=== PATIENT | male | born 1995 | race Two or more races ===

== ENCOUNTER 2019-02-20 15:09 | Emergency (ER) | payer MEDICAID ==
--- NOTE | 2019-02-20 17:49 | ED Physician Documentation ---
PD HPI SKIN - Stated complaint Stated Complaint: RT EAR PX - Chief complaint Chief Complaint: Wound - History obtained from History obtained from: Patient, Family - History of Present Illness Timing - onset: How many days ago (noted some swelling behind right earlobe that got tender and then family noted that it drained yellow/white with red tinge material. Just a small amount and the swelling went down, but is starting to accumulate/swell again.) Timing - duration: Days (few) Timing - details: Gradual onset Location: Other (right postauricular area.) Quality / character: Painful, Swelling, Draining (small amount 2 days ago, none now.). No: Itchy Associated symptoms: Facial swelling. No: Fever, Headache, N/V/D Contributing factors: Unknown (he is visiting family here for now, unknown return time. Lives in [place]?) Similar symptoms before: Diagnosis (had skin abscess in thigh in the past, no recent other problems.) Recently seen: Not recently seen Review of Systems Constitutional: denies: Fever, Chills Ears: denies: Ear pain, Drainage/discharge Nose: denies: Rhinorrhea / runny nose, Congestion Throat: denies: Sore throat Respiratory: denies: Cough GI: denies: Abdominal Pain, Nausea, Vomiting, Diarrhea Neurologic: reports: Other (spina bifida, in wheelchair chronically. has had prior GRAIN PROCESSOR shunts for hydrocephalus.) PD PAST MEDICAL HISTORY - Present Medications Home Medications: Ambulatory Orders Medication Instructions Recorded Confirmed Chlorhexidine Gluconate [Hibiclens] 15 ml TP DAILY #236 ml 02/20/19 Sulfamethox/Trimeth 800/160 1 each PO BID #14 tablet 02/20/19 [Bactrim Ds 800/160] - Allergies Allergies/Adverse Reactions: Allergies Allergy/AdvReac Type Severity Reaction Status Date / Time Latex, Natural Rubber Allergy Rash Verified 02/20/19 15:33 PD ED PE NORMAL - Vitals Vital signs reviewed: Yes - General General: Alert and oriented X 3, No acute distress, Well developed/nourished, Other (in wheelchair. ) - HEENT HEENT: Ears normal, Moist mucous membranes, Pharynx benign - Neck Neck: Supple, no meningeal sign, No adenopathy, Other (right postauricular/back of ear in crease, with local area of some tenderness, mild redness, but no drainage nor fluctuance. His sister shows photo of the drainage material 2 days ago and it does look purulent. Noted is right parietal/occipital area shunt reservoir and then tubing, that is posterior to the area of the ear lump. No feeling of swelling nor tenderness along line of hte GRAIN PROCESSOR shunt tubing. ) - Cardiac Cardiac: RRR, No murmur - Respiratory Respiratory: Clear bilaterally - Derm Derm: Normal color, Warm and dry - Neuro Neuro: Alert and oriented X 3, Normal speech Results - Vitals Vitals: Vital Signs - 24 hr 02/20/19 02/20/19 15:26 18:13 Temperature 98.3 C H 36.6 C Heart Rate 111 H 103 H Respiratory 18 17 Rate Blood Pressure 155/100 H 138/101 H O2 Saturation 92 96 Oxygen O2 Source Room air PD MEDICAL DECISION MAKING - ED course Complexity details: considered differential (local skin infection/abscess that did drain and is now with some swelling starting again. But no fluctuance felt. It is not in area of his shunt tubing. ), d/w patient Departure - Departure Disposition: 01 Home, Self Care Clinical Impression: Abscess of postauricular region Condition: Stable Record reviewed to determine appropriate education?: Yes Instructions: ED Staph Infec Abx Tx Only Prescriptions: Chlorhexidine Gluconate [Hibiclens] 15 ml TP DAILY #236 ml Sulfamethox/Trimeth 800/160 [Bactrim Ds 800/160] 1 each PO BID #14 tablet Comments: The infection does not feel large enough to need to molly open. We will treat it with oral antibiotics twice daily for a week. Also use the chlorhexidine antiseptic wash when cleansing or showering definitely through the head and neck area and you can use it on the whole upper body to reduce amount of germs on the surface. Do this daily for the next week or so. Tylenol ibuprofen if needed for pains. Recheck if not fully improved over the next few days return sooner if worsening or other areas develop. The area of infection where it is does not look close enough to your shunt to be concerned about infection of it. We would be concerned if any sores develop overlying the shunt area or closer to it. Discharge Date/Time: 02/20/19 18:19
[2019-02-20] MEDS ORDERED: SULFAMETH/TRIMETH DS 800/160 MG TABLET PO STA (18:04)
[2019-02-20 18:14] VITALS: BP 138/101
== END 2019-02-20 18:19 | disposition home or self-care (01) ==
LOC: ED 15:09
DX: H60.01 Abscess of right external ear (principal)
CPT/HCPCS: 99282; 99284; A9270

== ENCOUNTER 2019-02-23 20:28 | Emergency (ER) | payer MEDICAID ==
--- NOTE | 2019-02-23 20:38 | ED Physician Documentation ---
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 Nausea, no vomiting. Pain has improved while awaiting evaluation Review of Systems Constitutional: denies: Fever, Chills, Sweats Cardiac: reports: Reviewed and negative Respiratory: reports: Reviewed and negative GI: reports: Abdominal Pain, Nausea. denies: Abdominal Swelling, Vomiting, Constipation, Diarrhea : denies: Dysuria, Frequency Neurologic: reports: Focal weakness (chronic (spina bifida, wheelchair-bound)). denies: Headache PD PAST MEDICAL HISTORY - Past Medical History Past Medical History: Yes Musculoskeletal: Paraplegia - Past Surgical History Ortho: Spine surgery Neuro: LINING VAMPER shunt - Present Medications Home Medications: Ambulatory Orders Medication Instructions Recorded Confirmed Chlorhexidine Gluconate [Hibiclens] 15 ml TP DAILY #236 ml 02/20/19 Sulfamethox/Trimeth 800/160 1 each PO BID #14 tablet 02/20/19 [Bactrim Ds 800/160] Cefdinir 300 mg PO BID #20 capsule 02/23/19 - Allergies Allergies/Adverse Reactions: Allergies Allergy/AdvReac Type Severity Reaction Status Date / Time Latex, Natural Rubber Allergy Rash Verified 02/23/19 20:33 PD ED PE NORMAL - Vitals Vital signs reviewed: Yes - General General: Alert and oriented X 3, No acute distress, Well developed/nourished - HEENT HEENT: Moist mucous membranes - Neck Neck: Supple, no meningeal sign - Cardiac Cardiac: No murmur - Respiratory Respiratory: No respiratory distress, Clear bilaterally - Abdomen Abdomen: Normal bowel sounds, Soft, Non tender, Non distended - Derm Derm: Normal color, Warm and dry PD ED PE EXPANDED - Cardiac Cardiac: Tachy, Regular Rhythm Results - Vitals Vitals: Vital Signs - 24 hr 02/23/19 02/23/19 02/23/19 20:34 22:32 23:40 Temperature 37.1 C 37.7 C H 2.9 C L Heart Rate 117 H 108 H 102 H Respiratory 16 18 16 Rate Blood Pressure 178/89 H 141/101 H 149/100 H O2 Saturation 92 94 95 Oxygen O2 Source Room air - Labs Labs: Laboratory Tests 02/23/19 21:12 Urine Color YELLOW Urine Clarity HAZY Urine pH 8.0 H Ur Specific [place] 1.010 Urine Protein NEGATIVE Urine Glucose (UA) 250 H Urine Ketones NEGATIVE Urine Occult Blood TRACE-INTA Urine Nitrite POSITIVE H Urine Bilirubin NEGATIVE Urine Urobilinogen 0.2 (NORMAL) Ur Leukocyte Esterase LARGE H Urine RBC 6-10 H Urine WBC 11-25 H Ur Squamous Epith Cells FEW Squamous Urine Bacteria Many H Ur Microscopic Review INDICATED Urine Culture Comments INDICATED - Rads (name of study) RUQ US Radiology: Prelim report reviewed, See rad report PD MEDICAL DECISION MAKING - ED course Complexity details: reviewed old records, reviewed results, re-evaluated patient, considered differential, d/w patient, d/w family Departure - Departure Disposition: 01 Home, Self Care Clinical Impression: Urinary tract infection Condition: Good Instructions: ED UTI Cystitis Male Prescriptions: Cefdinir 300 mg PO BID #20 capsule Comments: Discontinue the bactrim (the antibiotic prescribed on your last emergency room visit) and start the cefdinir (prescribed today) in the morning (02/24/19) Discharge Date/Time: 02/23/19 22:44
[2019-02-23 21:20] LABS: BILIRUBIN,URINE NEGATIVE (NEGATIVE); GLUCOSE, URINE (UA) 250 mg/dL (NEGATIVE); KETONES,URINE (UA) NEGATIVE (NEGATIVE); LEUKOCYTE ESTERASE, URINE LARGE (NEGATIVE); NITRITE,URINE POSITIVE (NEGATIVE); OCCULT BLOOD,URINE TRACE-INTA (NEGATIVE); PROTEIN,URINE NEGATIVE (NEGATIVE); UROBILINOGEN,URINE 0.2 (NORMAL) E.U./dL (NORMAL)
[2019-02-23 21:22] LABS: CLARITY,URINE HAZY (CLEAR)
[2019-02-23 21:33] LABS: BACTERIA,URINE Many /HPF (None Seen); SQUAMOUS EPITHELIAL CELL,UR FEW Squamous (<= Few)
--- NOTE | 2019-02-23 22:31 | Ultrasound Report ---
Reason: RUQ pain Procedure Date: 02/23/2019 Accession Number: [id number] / [id number] Procedure: US - Abdomen Limited CPT Code: Final Report FULL RESULT: EXAM: ABDOMEN ULTRASOUND LIMITED, RUQ EXAM DATE: 02/23/2019 09:46 PM. CLINICAL HISTORY: RUQ pain. COMPARISON: None. TECHNIQUE: Real-time scanning was performed with static images obtained. FINDINGS: Liver: Normal in size and echotexture. 70 cm. Main portal vein flow: Patent. Gallbladder: Normal. No stones, wall thickening, or sonographic Coy's sign. Biliary System: CBD measures 3 mm. No intrahepatic or extrahepatic ductal dilatation identified. Other: The visualized pancreas and right kidney are unremarkable. No free fluid. IMPRESSION: No cholelithiasis or cholecystitis identified. RADIA
[2019-02-23] MEDS ORDERED: cefTRIAXone 1 GM VIAL IM STA (22:45)
[2019-02-23] MEDS ORDERED: LIDOCAINE 1% 2 ML VIAL MC ONE (22:45)
[2019-02-24 00:17] VITALS: BP 149/100
== END 2019-02-23 22:44 | disposition home or self-care (01) ==
LOC: ED 20:28
DX: N39.0 Urinary tract infection, site not specified (principal); Q05.9 Spina bifida, unspecified; G82.20 Paraplegia, unspecified
CPT/HCPCS: 76705; 80053; 81001; 81003; 83690; 85025; 87077; 87086; 87181; 96372; 99284

== ENCOUNTER 2020-08-05 13:58 | Observation (INO) | payer MEDICAID ==
--- NOTE | 2020-08-05 14:20 | ED Physician Documentation ---
PD HPI ABD PAIN - Stated complaint Stated Complaint: ABD PX,VOMITING - Chief complaint Chief Complaint: Abd Pain - History obtained from History obtained from: Patient - Additional information Additional information: 24-year-old gentleman with history of spina bifida. He is wheelchair-bound and self caths due to neurogenic bladder. He gets intermittent abdominal pain and presents with an exacerbation of same. States he usually does not come to the hospital for this but despite saying its not worse than normal decided to come to the hospital today. Happens about every week. It is associated with constipation. Last bowel movement was yesterday and small. Today he vomited. He denies fevers or chills. He has a history of extensive spinal surgery related to spina bifida and states when he was a baby he had some sort of abdominal surgery which corresponds to a right upper quadrant scar but he does not know the details of that. No associated fevers or urinary complaints. Review of Systems Ten Systems: 10 systems reviewed and negative Constitutional: reports: Reviewed and negative Ears: reports: Reviewed and negative Nose: reports: Reviewed and negative Throat: reports: Reviewed and negative Cardiac: reports: Reviewed and negative PD PAST MEDICAL HISTORY - Past Medical History : Kidney stones Musculoskeletal: Paraplegia - Past Surgical History Past Surgical History: Yes Ortho: Spine surgery Neuro: BRIMMER BLOCKER shunt - Allergies Allergies/Adverse Reactions: Allergies Allergy/AdvReac Type Severity Reaction Status Date / Time Latex, Natural Rubber Allergy Rash Verified 08/05/20 14:06 - Social History Does the pt smoke?: No Smoking Status: Never smoker Does the pt drink ETOH?: No Does the pt have substance abuse?: No - Immunizations Immunizations are current?: Yes PD ED PE NORMAL - Vitals Vital signs reviewed: Yes - General General: Alert and oriented X 3, No acute distress - HEENT HEENT: PERRL, EOMI - Neck Neck: Supple, no meningeal sign, No bony TTP - Cardiac Cardiac: RRR, No murmur - Respiratory Respiratory: No respiratory distress, Clear bilaterally - Abdomen Abdomen: Other (Right upper quadrant scar, palpable umbilical hernia which is easily reducible and nontender. Mild diffuse tenderness without surgical signs.) - Neuro Neuro: Alert and oriented X 3, Normal speech Results - Vitals Vitals: Vital Signs - 24 hr 08/05/20 08/05/20 08/05/20 14:01 14:25 15:00 Temperature 36.8 C Heart Rate 54 L 149 H 146 H Respiratory 17 27 H 25 H Rate Blood Pressure 143/99 H 146/91 H 135/74 H O2 Saturation 94 92 94 08/05/20 17:47 Temperature Heart Rate 133 H Respiratory 18 Rate Blood Pressure 158/95 H O2 Saturation 92 Oxygen O2 Source Room air - EKG (time done) 1436 Rate: Rate (enter#) (148) Rhythm: Sinus tachycardia [place]: RAD Intervals: Normal RI QRS: Normal Ischemia: Non specific changes. No: ST elevation c/w ischemia, ST depression - Labs Labs: Laboratory Tests 08/05/20 08/05/20 08/05/20 14:40 14:40 14:40 WBC 19.3 H RBC 6.28 H Hgb 18.6 H Hct 57.1 H MCV 90.9 MCH 29.6 MCHC 32.6 RDW 13.7 Plt Count 360 MPV 9.0 Neut # (Auto) 17.0 H Lymph # (Auto) 0.8 L [place] # (Auto) 1.4 H Eos # (Auto) 0.0 Baso # (Auto) 0.1 Absolute Nucleated RBC 0.00 Nucleated RBC % 0.0 Sodium 141 Potassium 3.6 Chloride 97 L Carbon Dioxide 31 Anion Gap 13.0 BUN 23 H Creatinine 0.8 Estimated GFR (MDRD) 119 Glucose 142 H Lactic Acid 1.1 Calcium 9.5 Magnesium 2.5 Total Bilirubin 1.2 H AST 22 ALT 51 Alkaline Phosphatase 105 Troponin I High Sens B-Natriuretic Peptide Total Protein 8.4 H Albumin 4.8 Globulin 3.6 Albumin/Globulin Ratio 1.3 Lipase 24 TSH Urine Color Urine Clarity Urine pH Ur Specific [place] Urine Protein Urine Glucose (UA) Urine Ketones Urine Occult Blood Urine Nitrite Urine Bilirubin Urine Urobilinogen Ur Leukocyte Esterase Urine RBC Urine WBC Ur Epithelial Cells Ur Squamous Epith Cells Amorphous Sediment Urine Bacteria Ur Microscopic Review Urine Culture Comments Nasal Adenovirus (PCR) Nasal B. parapertussis DNA (PCR) Nasal Coronavir 229E PCR Nasal Coronavir HKU1 PCR Nasal Coronavir NL63 PCR Nasal Coronavir OC43 PCR Nasal Enterovir/Rhinovir PCR Nasal Influenza B PCR Nasal Influenza A PCR Nasal Parainfluen 1 PCR Nasal Parainfluen 2 PCR Nasal Parainfluen 3 PCR Nasal Parainfluen 4 PCR Nasal RSV (PCR) Nasal B.pertussis DNA PCR Nasal C.pneumoniae (PCR) Kam Human Metapneumo PCR Nasal M.pneumoniae (PCR) Nasal SARS-CoV-2 (PCR) Urine Opiates Screen Ur Oxycodone Screen Urine Methadone Screen Ur Propoxyphene Screen Ur Barbiturates Screen Ur Tricyclics Screen Ur Phencyclidine Scrn Ur Amphetamine Screen U Methamphetamines Scrn U Benzodiazepines Scrn Urine Cocaine Screen U Cannabinoids Screen 08/05/20 08/05/20 08/05/20 14:40 14:40 14:40 WBC RBC Hgb Hct MCV MCH MCHC RDW Plt Count MPV Neut # (Auto) Lymph # (Auto) [place] # (Auto) Eos # (Auto) Baso # (Auto) Absolute Nucleated RBC Nucleated RBC % Sodium Potassium Chloride Carbon Dioxide Anion Gap BUN Creatinine Estimated GFR (MDRD) Glucose Lactic Acid Calcium Magnesium Total Bilirubin AST ALT Alkaline Phosphatase Troponin I High Sens 3.1 B-Natriuretic Peptide 12 Total Protein Albumin Globulin Albumin/Globulin Ratio Lipase TSH 1.03 Urine Color Urine Clarity Urine pH Ur Specific [place] Urine Protein Urine Glucose (UA) Urine Ketones Urine Occult Blood Urine Nitrite Urine Bilirubin Urine Urobilinogen Ur Leukocyte Esterase Urine RBC Urine WBC Ur Epithelial Cells Ur Squamous Epith Cells Amorphous Sediment Urine Bacteria Ur Microscopic Review Urine Culture Comments Nasal Adenovirus (PCR) Nasal B. parapertussis DNA (PCR) Nasal Coronavir 229E PCR Nasal Coronavir HKU1 PCR Nasal Coronavir NL63 PCR Nasal Coronavir OC43 PCR Nasal Enterovir/Rhinovir PCR Nasal Influenza B PCR Nasal Influenza A PCR Nasal Parainfluen 1 PCR Nasal Parainfluen 2 PCR Nasal Parainfluen 3 PCR Nasal Parainfluen 4 PCR Nasal RSV (PCR) Nasal B.pertussis DNA PCR Nasal C.pneumoniae (PCR) Kam Human Metapneumo PCR Nasal M.pneumoniae (PCR) Nasal SARS-CoV-2 (PCR) Urine Opiates Screen Ur Oxycodone Screen Urine Methadone Screen Ur Propoxyphene Screen Ur Barbiturates Screen Ur Tricyclics Screen Ur Phencyclidine Scrn Ur Amphetamine Screen U Methamphetamines Scrn U Benzodiazepines Scrn Urine Cocaine Screen U Cannabinoids Screen 08/05/20 08/05/20 15:35 15:50 WBC RBC Hgb Hct MCV MCH MCHC RDW Plt Count MPV Neut # (Auto) Lymph # (Auto) [place] # (Auto) Eos # (Auto) Baso # (Auto) Absolute Nucleated RBC Nucleated RBC % Sodium Potassium Chloride Carbon Dioxide Anion Gap BUN Creatinine Estimated GFR (MDRD) Glucose Lactic Acid Calcium Magnesium Total Bilirubin AST ALT Alkaline Phosphatase Troponin I High Sens B-Natriuretic Peptide Total Protein Albumin Globulin Albumin/Globulin Ratio Lipase TSH Urine Color YELLOW Urine Clarity CLOUDY Urine pH 7.5 Ur Specific [place] 1.020 Urine Protein 100 H Urine Glucose (UA) NEGATIVE Urine Ketones TRACE Urine Occult Blood LARGE H Urine Nitrite POSITIVE H Urine Bilirubin NEGATIVE Urine Urobilinogen 1 (NORMAL) Ur Leukocyte Esterase MODERATE H Urine RBC 11-25 H Urine WBC 11-25 H Ur Epithelial Cells MOD Transitional H Ur Squamous Epith Cells RARE Squamous Amorphous Sediment Few Urine Bacteria Many H Ur Microscopic Review INDICATED Urine Culture Comments INDICATED Nasal Adenovirus (PCR) NOT DETECTED Nasal B. parapertussis DNA (PCR) NOT DETECTED Nasal Coronavir 229E PCR NOT DETECTED Nasal Coronavir HKU1 PCR NOT DETECTED Nasal Coronavir NL63 PCR NOT DETECTED Nasal Coronavir OC43 PCR NOT DETECTED Nasal Enterovir/Rhinovir PCR NOT DETECTED Nasal Influenza B PCR NOT DETECTED Nasal Influenza A PCR NOT DETECTED Nasal Parainfluen 1 PCR NOT DETECTED Nasal Parainfluen 2 PCR NOT DETECTED Nasal Parainfluen 3 PCR NOT DETECTED Nasal Parainfluen 4 PCR NOT DETECTED Nasal RSV (PCR) NOT DETECTED Nasal B.pertussis DNA PCR NOT DETECTED Nasal C.pneumoniae (PCR) NOT DETECTED Kam Human Metapneumo PCR NOT DETECTED Nasal M.pneumoniae (PCR) NOT DETECTED Nasal SARS-CoV-2 (PCR) NOT DETECTED Urine Opiates Screen NEGATIVE Ur Oxycodone Screen NEGATIVE Urine Methadone Screen NEGATIVE Ur Propoxyphene Screen NEGATIVE Ur Barbiturates Screen NEGATIVE Ur Tricyclics Screen NEGATIVE Ur Phencyclidine Scrn NEGATIVE Ur Amphetamine Screen NEGATIVE U Methamphetamines Scrn NEGATIVE U Benzodiazepines Scrn NEGATIVE Urine Cocaine Screen NEGATIVE U Cannabinoids Screen NEGATIVE Procedures - General procedure General procedure: He was difficult for IV access, I personally placed a long 20-gauge IV in the Left deep brachial vein after ChloraPrep with real-time ultrasound guidance the flushed and elmer well and labs were sent. PD MEDICAL DECISION MAKING - ED course ED course: 24-year-old gentleman presents with abdominal pain and vomiting. By history he says this is recurrent issue and happens every week or 2. On exam he had what I thought was an not incarcerated umbilical hernia but also significant tachycardia that did respond to fluids. Labs show evidence of hemoconcentration, potential UTI noting that he self caths and will treat given the elevated white count and other signs of illness. CT of the belly showing incarcerated umbilical hernia causing SBO and spoke with our on-call surgeon, Dr. Polk around 5:10 PM and he will come in and see the patient. NG tube ordered in the interim. Dr. Polk saw the patient also felt like he reduced the hernia and therefore there was no urgent need for surgery. He deferred back to medicine for admission and I spoke with Dr. Garcia for same at 6:12 PM. Given his tachycardia, and no evidence of cardiac decompensation he was given couple boluses of IV fluid with improvement in his heart rate from about 150 to about 130. - Critical Care Time(min): 40 Time Includes: Direct patient care, Review records, Reassess patient, Document care, Coordinate care, Medical consult Data interpretation: Labs, Pulse ox Procedures included in critical care time: Peripheral IV Procedures excluded from critical care time: EKG - Sepsis Event Sepsis Onset Date: 08/05/20 Sepsis Onset Time: 17:00 Current Stage of Sepsis: Sepsis Initial Hypotension: Not hypotensive Possible source of Sepsis: Genitourinary Mental/Cognitive Status: Alert/Oriented X3, Normal for patient Reason for not giving 30ml/kg crystalloid fluids: Not in septic shock Capillary refill: Less than 2 seconds Peripheral Pulse Strength: 3+ Normal Peripheral Pulse Location: Radial Departure - Departure Disposition: ED Place in Observation Clinical Impression: SBO (small bowel obstruction), Tachycardia Urinary tract infection Qualifiers: Urinary tract infection type: catheter-associated UTI Indwelling urinary catheter type: unspecified Encounter type: initial encounter Qualified Code(s): T83.511A - Infection and inflammatory reaction due to indwelling urethral catheter, initial encounter; N39.0 - Urinary tract infection, site not specified Sepsis Qualifiers: Sepsis type: sepsis due to unspecified organism Sepsis acute organ dysfunction status: without acute organ dysfunction Qualified Code(s): A41.9 - Sepsis, unspecified organism Condition: Serious Discharge Date/Time: 08/05/20 19:03
[2020-08-05] MEDS ORDERED: SODIUM CHLORIDE 0.9% 1,000 ML IV STA (14:50)
[2020-08-05 14:57] LABS: BASOPHILS # (AUTO) 0.1 10^3/uL (0.0-0.1); BASOPHILS % (AUTO) 0.3 %; EOSINOPHILS % (AUTO) 0.2 %; HCT - HEMATOCRIT 57.1 % (42.0-52.0); HGB - HEMOGLOBIN 18.6 g/dL (14.0-18.0); LYMPHOCYTES # (AUTO) 0.8 10^3/uL (1.5-3.5); LYMPHOCYTES % (AUTO) 4.2 %; MEAN CORPUSCULAR HEMOGLOBIN 29.6 pg (27.0-31.0); MEAN CORPUSCULAR HGB CONC 32.6 g/dL (32.0-36.0); MEAN CORPUSCULAR VOLUME 90.9 fL (80.0-94.0); MONOCYTES # (AUTO) 1.4 10^3/uL (0.0-1.0); NEUTROPHILS % (AUTO) 87.9 %; PLT - PLATELET COUNT 360 10^3/uL (130-450); RED BLOOD COUNT 6.28 10^6/uL (4.70-6.10); RED CELL DISTRIBUTION WIDTH 13.7 % (12.0-15.0); WHITE BLOOD COUNT 19.3 x10^3/uL (4.8-10.8)
[2020-08-05 15:09] LABS: ALBUMIN 4.8 g/dL (3.2-5.5); ALBUMIN/GLOBULIN RATIO 1.3 (1.0-2.2); BILIRUBIN,TOTAL 1.2 mg/dL (0.2-1.0); CALCIUM 9.5 mg/dL (8.5-10.3); CREATININE 0.8 mg/dL (0.6-1.2); MAGNESIUM 2.5 mg/dL (1.7-2.8); POTASSIUM 3.6 mmol/L (3.5-5.0); TOTAL PROTEIN 8.4 g/dL (6.7-8.2)
[2020-08-05] MEDS ORDERED: HYDROmorphone 1 MG/ML CARPUJECT IVP STA (15:13)
[2020-08-05] MEDS ORDERED: ONDANSETRON 4 MG/2 ML VIAL IVP STA (15:23)
--- NOTE | 2020-08-05 15:31 | XRAY Report ---
PROCEDURE: Chest 1 View X-Ray INDICATIONS: tachycardia, bordeline sat TECHNIQUE: One view of the chest was acquired. COMPARISON: None FINDINGS: Surgical changes and devices: Partially visualized thoracolumbar fixation rods are present. Lungs and pleura: Poor inspiratory effort and overlying soft tissues limit evaluation. No gross conso lidations or effusions. Mediastinum: Mediastinal contours appear normal. Heart size is normal. Bones and chest wall: No suspicious bony lesions. Overlying soft tissues appear unremarkable. IMPRESSION: Significantly limited exam as above without focal consolidation or effusion. Reviewed by: Kavita Armenta MD on 08/05/2020 3:29 PM PDT Approved by: Kavita Armenta MD on 08/05/2020 3:29 PM PDT Station ID: [id number]
[2020-08-05] MEDS ORDERED: IOPAMIDOL-300 100 ML VIAL ONE (16:04)
[2020-08-05 16:06] LABS: MUDS CUTOFF CONCENTRATIONS CUTOFF CONC BELOW:
[2020-08-05] MEDS ORDERED: LACTATED RINGERS 1,000 ML IV STA (16:06)
[2020-08-05 16:12] LABS: BILIRUBIN,URINE NEGATIVE (NEGATIVE); GLUCOSE, URINE (UA) NEGATIVE (NEGATIVE); KETONES,URINE (UA) TRACE mg/dL (NEGATIVE); LEUKOCYTE ESTERASE, URINE MODERATE (NEGATIVE); NITRITE,URINE POSITIVE (NEGATIVE); OCCULT BLOOD,URINE LARGE (NEGATIVE); PH,URINE 7.5 PH (5.0-7.5); PROTEIN,URINE 100 mg/dL (NEGATIVE); UROBILINOGEN,URINE 1 (NORMAL) E.U./dL (NORMAL)
[2020-08-05 16:17] LABS: CLARITY,URINE CLOUDY (CLEAR)
[2020-08-05 16:18] LABS: SQUAMOUS EPITHELIAL CELL,UR RARE Squamous (<= Few)
[2020-08-05 16:19] LABS: AMORPHOUS SEDIMENT,UR Few /LPF; BACTERIA,URINE Many /HPF (None Seen); EPITHELIAL CELLS,UR MOD Transitional /HPF (<= Few)
[2020-08-05 16:20] LABS: AMPHETAMINE SCREEN,URINE NEGATIVE (NEGATIVE); BENZODIAZEPINES SCREEN, URINE NEGATIVE (NEGATIVE); COCAINE SCREEN URINE NEGATIVE (NEGATIVE); METHADONE SCREEN, URINE NEGATIVE (NEGATIVE); METHAMPHETAMINES SCREEN, URINE NEGATIVE (NEGATIVE); OPIATE SCREEN, URINE NEGATIVE (NEGATIVE); THC CANNABINOID SCREEN, URINE NEGATIVE (NEGATIVE); TRICYCLIC ANTIDEPRESSANT,URINE NEGATIVE (NEGATIVE)
[2020-08-05 16:21] LABS: BARBITURATE SCREEN,UR NEGATIVE (NEGATIVE); OXYCODONE SCREEN, URINE NEGATIVE (NEGATIVE); PROPOXYPHENE SCREEN, URINE NEGATIVE (NEGATIVE)
[2020-08-05 16:28] LABS: B. PARAPERTUSSIS- RESP PCR PAN NOT DETECTED; B. PERTUSSIS- RESP PCR PANEL NOT DETECTED; C. PNEUMONIAE- RESP PCR PANEL NOT DETECTED; CORONAVIRUS 229E-RESP PCR NOT DETECTED; CORONAVIRUS HKU1-RESP PCR NOT DETECTED; CORONAVIRUS NL63-RESP PCR NOT DETECTED; CORONAVIRUS OC43-RESP PCR NOT DETECTED; HUMAN METAPNEUMOVIRUS NOT DETECTED; INFLUENZA A- RESP PCR PANEL NOT DETECTED; INFLUENZA B - RESP PCR PANEL NOT DETECTED; M. PNEUMONIAE- RESP PCR PANEL NOT DETECTED; PARAINFLUENZA VIRUS 1 NOT DETECTED; PARAINFLUENZA VIRUS 2 NOT DETECTED; PARAINFLUENZA VIRUS 3 NOT DETECTED; PARAINFLUENZA VIRUS 4 NOT DETECTED; RHINOVIRUS/ENTEROVIRUS NOT DETECTED; RSV- RESP PCR PANEL NOT DETECTED; SARS-CoV-2 -RESP PCR PANEL NOT DETECTED
--- NOTE | 2020-08-05 16:54 | CT Report ---
PROCEDURE: ANGIO CHEST W/WO INDICATIONS: Tachycardia, hypoxemia CONTRAST: IV CONTRAST: Isovue 300 ml: 100 PO CONTRAST: *NO PO CONTRAST TECHNIQUE: After the administration of intravenous contrast, 2 mm thick sections acquired from the pulmonary api lakshmi to the posterior costophrenic angles. 3-dimensional maximum intensity projection (MIP) coronal a nd sagittal reformats were then acquired through the thorax. For radiation dose reduction, the follow ing was used: automated exposure control, adjustment of mA and/or kV according to patient size. COMPARISON: None FINDINGS: Image quality: Exam is extremely limited by patient body habitus and suboptimal contrast timing. Pulmonary arteries: No central or main pulmonary artery filling defect. Contrast opacification of the distal and small caliber pulmonary arteries is insufficient to exclude pulmonary embolus. Lungs and pleura: Patchy bilateral groundglass airspace opacities are nonspecific. No pleural effusio ns or pneumothorax. Central and peripheral airways are patent. Mediastinum: Heart size is normal, without pericardial effusion. No mediastinal or hilar adenopathy . Thoracic aorta is normal in caliber and enhancement. Esophagus is normal in caliber, without hiat al hernia. Bones and chest wall: No suspicious bony lesions. Ribs and thoracic spine appear intact throughout. The thyroid is normal. No axillary or supraclavicular adenopathy. Abdomen: Visualized upper abdominal solid organs appear normal in the early arterial phase of enhanc ement. IMPRESSION: Highly limited exam on the basis of patient body habitus and suboptimal contrast timing. No central or main pulmonary artery filling defect. Bilateral patchy ground glass airspace opacities, nonspecific, potentially pulmonary edema, infection , or inflammatory process. Reviewed by: Pavan Madrid MD on 08/05/2020 4:53 PM PDT Approved by: Pavan Madrid MD on 08/05/2020 4:53 PM PDT Station ID: [id number]
--- NOTE | 2020-08-05 17:06 | CT Report ---
PROCEDURE: Abdomen/Pelvis W INDICATIONS: IV only, Abd pain CONTRAST: IV CONTRAST: Isovue 300 ml: 100 PO CONTRAST: *NO PO CONTRAST TECHNIQUE: After the administration of IV contrast, 5 mm thick sections acquired from the diaphragms to the symp hysis. 5 mm thick coronal and sagittal reformats were acquired. For radiation dose reduction, the f ollowing was used: automated exposure control, adjustment of mA and/or kV according to patient size. COMPARISON: None. FINDINGS: Image quality: Excellent. ABDOMEN: Lung bases: Lung bases are clear. Heart size is normal. Solid organs: Liver and spleen are normal in size and enhancement. Gallbladder is normal Biliary s ystem is non dilated. Pancreas enhances normally. No adrenal nodules. 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 Peritoneum and bowel: There is a ventriculoperitoneal shunt in the right peritoneal cavity without a ssociated fluid collection. There is a small bowel obstruction with transition point at the umbilical hernia. The distal small bowel loops and colon are decompressed. No free fluid or air. Nodes and vessels: No retroperitoneal or mesenteric adenopathy by size criteria. Aorta and inferior vena cava are normal in size. Miscellaneous: There is a narrow necked umbilical hernia containing fat, trace fluid, and a loop of s mall bowel. 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 Bilateral hip joint effusions. IMPRESSION: 1. There is a small bowel obstruction due to bowel containing incarcerated umbilical hernia. NG tube decompression at this point may be helpful to the patient. 2. 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 A PHYS ASSISTANT shunt is also present. Reviewed by: Farrah Mccord MD on 08/05/2020 5:05 PM PDT Approved by: Farrah Mccord MD on 08/05/2020 5:05 PM PDT Station ID: [id number]
[2020-08-05] MEDS ORDERED: cefTRIAXone 1 GM in SODIUM CHLORIDE 0.9% MINIBAG 100 ML IV STA (17:16)
[2020-08-05] MEDS ORDERED: LIDOCAINE JELLY 2% 6 ML JEL.PF.APP TOP STA (18:00)
--- NOTE | 2020-08-05 18:15 | HISTORY & PHYSICAL EXAMINATION ---
Chief Complaint - Chief Complaint Chief Complaint: Abdominal pain and n/v History of Present Illness - History Obtained From History obtained from: pt Exam Limitations: none - History of Present Illness HPI Comment/Other: He has had an umbilical hernia for about 2 years. He has been able to feel it and at times push it back in. He is here visiting his sister. He is from [place]. He has spina bifida. 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 - POLST Patient has POLST: No Meds/Allgy - Allergies Allergies/Adverse Reactions: Allergies Allergy/AdvReac Type Severity Reaction Status Date / Time Latex, Natural Rubber Allergy Rash Verified 08/05/20 14:06 Exam - Vital Signs Reviewed Vital Signs: Yes Vital Signs: Vital Signs x48h Temp Pulse Resp BP Pulse Ox 08/05/20 17:47 133 H 18 158/95 H 27 L 08/05/20 15:00 146 H 25 H 135/74 H 94 08/05/20 14:25 149 H 27 H 146/91 H 92 08/05/20 14:01 36.8 C 54 L 17 143/99 H 94 - Physical Exam General Appearance: positive: No acute distress, Alert Eyes Bilateral: positive: PERRL, EOMI ENT: positive: No signs of dehydration Neck: positive: No JVD Respiratory: positive: No respiratory distress Cardiovascular: positive: Tachycardia Abdomen: positive: Non-tender, No distention Neurologic/Psychiatric: positive: Oriented x3 Conclusion/Plan - Problem List (1) Umbilical hernia Conclusion/Plan: He has a 3 cm umbilical hernia. The hernia bulge was non tender and small bowel reduced. He may have clears and advance as tolerated tomorrow. Ordinarily a binder would be very helpful. It may not work in his case due to his habitus. His abdomen is benign and hernia is reduced. Surgery at this time is not needed. Given his obesity and spina bifida he is at risk for pulmonary complication following surgery. To do a reliable hernia repair general anesthesia would be required. I do not believe he is a candidate for elective hernia surgery at a small [facility]. - Lab Results Fish Bones: 08/05/20 14:40 05/12/21 14:40 - Diagnostic Imaging Results Diagnostic Imaging Results Comments: scan pictures reviewed
[2020-08-05] MEDS ORDERED: ACETAMINOPHEN 325 MG TABLET PO PRN (18:19)
[2020-08-05] MEDS ORDERED: oxyCODONE 5 MG TABLET PO PRN (18:19)
[2020-08-05] MEDS ORDERED: SODIUM CHLORIDE FLUSH 0.9% 10 ML SYRINGE IVP PRN (18:19)
[2020-08-05] MEDS ORDERED: ONDANSETRON 4 MG/2 ML VIAL IVP PRN (18:19)
[2020-08-05] MEDS ORDERED: IOPAMIDOL-300 100 ML VIAL IVP ONE (18:46)
--- NOTE | 2020-08-05 19:47 | HISTORY & PHYSICAL EXAMINATION ---
Chief Complaint - Chief Complaint Chief Complaint: abd pain w N/V History of Present Illness - Admitted From Admitted From:: home via POV - History Obtained From Records Reviewed: [facility] History obtained from: patient, sign out from day Hospitalist Exam Limitations: none - History of Present Illness HPI Comment/Other: Mr. Sandoval brought himself in by private vehicle for left lower quadrant abdominal pain associated with nausea and vomiting. 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 He self catheterizes on a regular basis. The abdominal pain is not new for him. He has at least a 2-year history of an umbilical hernia that gets bigger and smaller. It has not been incarcerated before. He says he gets this off and on but it does not last very long. This episode is particularly worse than usual. He has been seen by physicians in [place], and they feel that he is not a surgical candidate at this time but he cannot tell me why. He comes to visit his sister. This is a second time coming to [facility]. He came about a month ago. He usually lives in [place] and gets his care with Dr. Roberto Montes who is Family Medicine MD [facility]. [phone]. He denies fevers, chills, sweats. 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 His last bowel movement was yesterday. Anytime he tries to drink or eat something the food comes right back up. He does not think it makes the pain worse. He was seen by Dr. Reyes in the emergency room. Temperature was 36.8, heart rate 54, blood pressure 143/99, respirations 17. Room air 94%. His subsequent pulse rate went up to the 140s and stayed there throughout his ER stay. In looking at his previous days in the ER his heart rate varies between 103 and 117 on a regular basis. On physical examination he had a right upper quadrant scar, a palpable umbilical hernia that was easily reducible and nontender. He had diffuse mild tenderness. White cell count was 19.3, hemoglobin 18.6. Urinalysis had transitional epithelial cells, squamous epithelial cells, many bacteria, moderate leukocyte esterase, red cells, white cells, positive nitrites, positive occult blood. pH was 7.5. This looks like an contaminated urine. CT of the abdomen had an incarcerated umbilical hernia causing small bowel obstruction. Dr. Polk, gen era surgery on-call, was able to come in and reduce the hernia. However, because of the tachycardia, elevated white cell count, he is requesting the patient be admitted to our service with his consultation. Wants to make sure the patient is observed overnight for recurrence of small bowel obstruction. Also to make sure he is contaminated urine is not infected UTI. History - Past Medical History Respiratory: reports: Asthma (occasionally, he thinks) GI: reports: Other (Umbilical hernia for over 2 years) FINE ARTIST: reports: None : reports: Retention (Genic bladder, due to spina bifida), Kidney stones HEENT: reports: None Psych: reports: None Musculoskeletal: reports: Paraplegia, Other (Delayed growth of lower extremities due to spina bifida) MRSA Hx?: No Other Past Medical History: Spina bifida - Past Surgical History General: reports: Other (None right upper quadrant surgery in infancy) Ortho: reports: Spine surgery Neuro: reports: CORPORATE GENERAL MANAGER shunt - Family & Social History Family History Comment/Other: Mom is 47 years old, has diabetes and hypertension. Dad is 50 years old but unknown to him. They are not in touch. 3 brothers and 1 sister. As far as he knows they are all healthy without high blood pressure, diabetes, cancer, heart attack, stroke. Living arrangement: At home Living Situation: With family Social History [place]: [place] He is from [place] and that is where all of his medical care is from. He does not smoke, rarely drinks alcohol. He is disabled due to lower extremity deformity, spina bifida, and is confined to a wheelchair.He lives with his mother. They both came out to visit his sister when she had a baby. He has been here over a month. Mom had to go back to [place] and is there now. - Substance History Use: Uses substance without health or social issues: NONE Abuse: Recurrent use of substance despite neg consequences: NONE - POLST Patient has POLST: No POLST Status: Full Code Meds/Allgy - Allergies Allergies/Adverse Reactions: Allergies Allergy/AdvReac Type Severity Reaction Status Date / Time Latex, Natural Rubber Allergy Rash Verified 08/05/20 14:06 Review of Systems - Constitutional Constitutional: reports: Poor appetite. denies: Fatigue, Fever, Chills, Malaise - Eyes Eyes: denies: Pain, Irritation, Amaurosis, Blurred vision, Field loss, Vision loss - Ears, Nose & Throat Ears, Nose & Throat: denies: Ear pain, Hearing loss, Hearing aids, Tinnitus, Sore throat, Hoarseness - Cardiovascular Cariovascular: denies: Irregular heart rate, Palpitations, Chest pain, Syncope, Exertional dyspnea, Decr. exercise tolerance - Respiratory Respiratory: reports: Cough (Sometimes when he has a bad cold as well as wh eezing and phlegm production), Wheezing - Gastrointestinal Gastrointestinal: reports: Abdominal pain (On and off for 2 years), Abdominal distention (on and off for 2 years), Nausea, Vomiting, Reflux/heartburn, Bloating. denies: Change in bowel habits, Rectal bleeding, Black stools, Bloody stools, Coffee grounds emesis, Poor appetite - Genitourinary Genitourinary: reports: Incontinence. denies: Dysuria, Frequency, Urgency, Hematuria, Flank pain, Nocturia - Musculoskeletal Musculoskeletal: reports: Back pain (With occasional lower extremity spasming and stiffness) - Integumentary Integumentary: denies: Rash, Pruritis - Neurological Neurological: reports: Focal weakness, Other (Because of his lower extremity paraplegia, he does have the strength to be able to transfer from wheelchair to his bed. Wheelchair to a chair.). denies: General weakness, Headache - Psychiatric Psychiatric: denies: Depression, Anxiety, Suicidal - Endocrine Endocrine: denies: Polyuria, Polydypsia, Polyphagia - Hematologic/Lymphatic Hematologic/Lymphatic: denies: Anemia, Bruising Prior Level of Functionality: Wheelchair bound and paraplegic because of paralysis from the waist down. Delayed growth of lower extremities has resulted in inability to ambulate even with forearm braces/crutches. He cannot drive a car. He is able to dress himself. However he needs help in the shower, people to do his laundry, cooking. He does not consider himself cognitively delayed. Exam - Vital Signs Reviewed Vital Signs: Yes Vital Signs: Vital Signs x48h Temp Pulse Resp BP Pulse Ox 08/05/20 19:01 134 H 19 140/81 H 95 08/05/20 17:47 133 H 18 158/95 H 92 08/05/20 15:00 146 H 25 H 135/74 H 94 08/05/20 14:25 149 H 27 H 146/91 H 92 08/05/20 14:01 36.8 C 54 L 17 143/99 H 94 - Physical Exam General Appearance: positive: No acute distress, Alert, Other (Corpulent 5 foot 2 inch male at 111.13 kg. Very pleasant, shy affect. Alert, no distress.) Eyes Bilateral: positive: PERRL, EOMI ENT: positive: Pharynx nml Neck: negative: Lymphadenopathy (R), Lymphadenopathy (L), Stiff neck Respiratory: positive: No respiratory distress. negative: Wheezes, Rales, Rhonchi Cardiovascular: positive: Regular rate & rhythm. negative: Gallop/S4, Friction rub Abdomen: positive: Other (Hugely obese abdomen with umbilical hernia that is present, slightly tender as I palpate it. Just had a large BM. Hyperactive bowel sounds.) Skin: positive: No rash, Warm, Dry Extremities: positive: Other (Small lower extremities whose size is about 30 to 40% of normal. Paralyzed, no skin defects.) Neurologic/Psychiatric: positive: Oriented x3, CN's nml (2-12), Other (Below the waist paraplegia) Conclusion/Plan - Problem List (1) SBO (small bowel obstruction) Conclusion/Plan: Placed in observation Examined tomorrow morning for passing of gas and stool IV hydration Nausea and pain management Await general surgery's opinion when he can go home (2) Incarcerated umbilical hernia Conclusion/Plan: Resolved due to reduction in the emergency room. Placed in observation status as above. (3) Leukocytosis Conclusion/Plan: I am yet to be postulated that he has infection with an elevated white cell count, resolved small bowel obstruction. And dehydration on top of that with a concentrated hemoglobin. Or that he has an infection from a UTI. The urinalysis has transitional cells as well as squamous cells with some contaminated specimen. This is a gentleman who instruments he is urethra on a daily basis. Plan: We are erring on the side of overtreatment. He will be placed on Cipro twice daily. Repeat labs tomorrow morning. Qualifiers: Leukocytosis type: unspecified Qualified Code(s): D72.829 - Elevated white blood cell count, unspecified (4) Abnormal urinalysis Conclusion/Plan: In a gentleman who has a neurogenic bladder and self catheterizes. Suspect long-term contamination. (5) Neurogenic bladder Conclusion/Plan: From spina bifida. Will continue to catheterize here on his schedule. - Lab Results Lab results reviewed: Yes Fish Bones: 08/05/20 14:40 08/05/20 14:40 - Diagnostic Imaging Results Diagnostic Imaging Results: positive: Final report reviewed Diagnostic Imaging Results Comments: EXAM: CT/ABPEW (50014) PROCEDURE: Abdomen/Pelvis W INDICATIONS: IV only, Abd pain CONTRAST: IV CONTRAST: Isovue 300 ml: 100 PO CONTRAST: *NO PO CONTRAST TECHNIQUE: After the administration of IV contrast, 5 mm thick sections acquired from the diaphragms to the symphysis. 5 mm thick coronal and sagittal reformats were acquired. For radiation dose reduction, the following was used: automated exposure control, adjustment of mA and/or kV according to patient size. COMPARISON: None. FINDINGS: Image quality: Excellent. ABDOMEN: Lung bases: Lung bases are clear. Heart size is normal. Solid organs: Liver and spleen are normal in size and enhancement. Gallbladder is normal Biliary system is non dilated. Pancreas enhances normally. No adrenal nodules. 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 Peritoneum and bowel: There is a ventriculoperitoneal shunt in the right peritoneal cavity without associated fluid collection. There is a small bowel obstruction with transition point at the umbilical hernia. The distal small bowel loops and colon are decompressed. No free fluid or air. Nodes and vessels: No retroperitoneal or mesenteric adenopathy by size criteria. Aorta and inferior vena cava are normal in size. Miscellaneous: There is a narrow necked umbilical hernia containing fat, trace fluid, and a loop of small bowel. 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 Bilateral hip joint effusions. IMPRESSION: 1. There is a small bowel obstruction due to bowel containing incarcerated umbilical hernia. NG tube decompression at this point may be helpful to the patient. 2. 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 A CORPORATE GENERAL MANAGER shunt is also present. Reviewed by: Farrah Mccord MD on 08/05/2020 5:05 PM PDT Approved by: Farrah Mccord MD on 08/05/2020 5:05 PM PDT Core Measures - Anticipated LOS I expect patient to be DC'd or transferred within 96 hours.: Yes - DVT/VTE - Prophylaxis VTE/DVT Device ordered at admit?: Yes
[2020-08-05] MEDS: SODIUM CHLORIDE 0.9% 1,000 ML IV SCH (20:05)
[2020-08-06] MEDS: SODIUM CHLORIDE FLUSH 0.9% 10 ML SYRINGE IVP SCH ×2 (02:00→08:46)
[2020-08-06] MEDS: ZINC OXIDE 20% OINT 30 GM TUBE TOP PRN ×2 (04:11→06:13)
[2020-08-06 04:48] LABS: BASOPHILS % (AUTO) 0.4 %; EOSINOPHILS # (AUTO) 0.3 10^3/uL (0.0-0.7); EOSINOPHILS % (AUTO) 2.6 %; HCT - HEMATOCRIT 48.8 % (42.0-52.0); HGB - HEMOGLOBIN 14.7 g/dL (14.0-18.0); LYMPHOCYTES # (AUTO) 1.4 10^3/uL (1.5-3.5); LYMPHOCYTES % (AUTO) 12.4 %; MEAN CORPUSCULAR HEMOGLOBIN 28.6 pg (27.0-31.0); MEAN CORPUSCULAR HGB CONC 30.1 g/dL (32.0-36.0); MEAN CORPUSCULAR VOLUME 94.9 fL (80.0-94.0); MONOCYTES # (AUTO) 1.3 10^3/uL (0.0-1.0); MONOCYTES % (AUTO) 12.1 %; NEUTROPHILS # (AUTO) 7.9 10^3/uL (1.5-6.6); NEUTROPHILS % (AUTO) 72.2 %; PLT - PLATELET COUNT 292 10^3/uL (130-450); RED BLOOD COUNT 5.14 10^6/uL (4.70-6.10); RED CELL DISTRIBUTION WIDTH 13.9 % (12.0-15.0); WHITE BLOOD COUNT 10.9 x10^3/uL (4.8-10.8)
[2020-08-06 04:56] LABS: CALCIUM 7.8 mg/dL (8.5-10.3); CREATININE 0.5 mg/dL (0.6-1.2); POTASSIUM 3.8 mmol/L (3.5-5.0)
[2020-08-06] MEDS: SODIUM CHLORIDE 0.9% 1,000 ML IV SCH (06:13)
[2020-08-06] MEDS: ENOXAPARIN 40 MG/0.4 ML SYRINGE SUBQ SCH ×2 (08:44→08:45)
--- NOTE | 2020-08-06 08:56 | PROVIDER PROGRESS NOTE ---
Subjective - Subjective Pt reports feeling: Improved (tolerating regular diet, had a bm, no abdominial pain) Objective - Vital Signs/Intake & Output Reviewed Vital Signs: Yes Vital Signs: Vital Signs x48h Temp Pulse Resp BP Pulse Ox 08/06/20 08:00 36.8 C 118 H 20 117/61 93 08/06/20 04:27 36.9 C 106 H 24 109/53 L 96 Intake & Output: Intake & Output 08/03/20 08/04/20 08/05/20 08/06/20 23:59 23:59 23:59 23:59 Intake Total 2599 2049 Balance 2599 2049 - Objective General Appearance: positive: No acute distress, Alert Respiratory: positive: No respiratory distress Rectal: positive: Non-tender, Other (he denies pain) - Lab Results Fish Bones: 08/06/20 04:15 08/06/20 04:15 Other Labs: Lab Results x24hrs 08/06/20 08/06/20 08/05/20 Range/Units 04:15 04:15 15:50 WBC 10.9 H (4.8-10.8) x10^3/uL RBC 5.14 (4.70-6.10) 10^6/uL Hgb 14.7 (14.0-18.0) g/dL Hct 48.8 (42.0-52.0) % MCV 94.9 H (80.0-94.0) fL MCH 28.6 (27.0-31.0) pg MCHC 30.1 L (32.0-36.0) g/dL RDW 13.9 (12.0-15.0) % Plt Count 292 (130-450) 10^3/uL MPV 9.0 (7.4-11.4) fL Neut # (Auto) 7.9 H (1.5-6.6) 10^3/uL Lymph # (Auto) 1.4 L (1.5-3.5) 10^3/uL [place] # (Auto) 1.3 H (0.0-1.0) 10^3/uL Eos # (Auto) 0.3 (0.0-0.7) 10^3/uL Baso # (Auto) 0.0 (0.0-0.1) 10^3/uL Absolute Nucleated RBC 0.00 x10^3/uL Nucleated RBC % 0.0 /100WBC Sodium 141 (135-145) mmol/L Potassium 3.8 (3.5-5.0) mmol/L Chloride 107 (101-111) mmol/L Carbon Dioxide 27 (21-32) mmol/L Anion Gap 7.0 (6-13) BUN 16 (6-20) mg/dL Creatinine 0.5 L (0.6-1.2) mg/dL Estimated GFR (MDRD) 204 (>89) Glucose 110 H (70-100) mg/dL Lactic Acid (0.5-2.2) mmol/L Calcium 7.8 L (8.5-10.3) mg/dL Magnesium (1.7-2.8) mg/dL Total Bilirubin (0.2-1.0) mg/dL AST (10-42) IU/L ALT (10-60) IU/L Alkaline Phosphatase (42-121) IU/L Troponin I High Sens (2.3-19.7) ng/L B-Natriuretic Peptide (5-100) pg/mL Total Protein (6.7-8.2) g/dL Albumin (3.2-5.5) g/dL Globulin (2.1-4.2) g/dL Albumin/Globulin Ratio (1.0-2.2) Lipase (22-51) U/L TSH (0.34-5.60) uIU/mL Urine Color YELLOW Urine Clarity CLOUDY (CLEAR) Urine pH 7.5 (5.0-7.5) PH Ur Specific Benton 1.020 (1.002-1.030) Urine Protein 100 H (NEGATIVE) mg/dL Urine Glucose (UA) NEGATIVE (NEGATIVE) mg/dL Urine Ketones TRACE (NEGATIVE) mg/dL Urine Occult Blood LARGE H (NEGATIVE) Urine Nitrite POSITIVE H (NEGATIVE) Urine Bilirubin NEGATIVE (NEGATIVE) Urine Urobilinogen 1 (NORMAL) (NORMAL) E.U./dL Ur Leukocyte Esterase MODERATE H (NEGATIVE) Urine RBC 11-25 H (0-5) /HPF Urine WBC 11-25 H (0-3) /HPF Ur Epithelial Cells MOD Transitional H (<= Few) /HPF Ur Squamous Epith Cells RARE Squamous (<= Few) Amorphous Sediment Few /LPF Urine Bacteria Many H (None Seen) /HPF Ur Microscopic Review INDICATED Urine Culture Comments INDICATED Nasal Adenovirus (PCR) Nasal B. parapertussis DNA (PCR) Nasal Coronavir 229E PCR Nasal Coronavir HKU1 PCR Nasal Coronavir NL63 PCR Nasal Coronavir OC43 PCR Nasal Enterovir/Rhinovir PCR Nasal Influenza B PCR Nasal Influenza A PCR Nasal Parainfluen 1 PCR Nasal Parainfluen 2 PCR Nasal Parainfluen 3 PCR Nasal Parainfluen 4 PCR Nasal RSV (PCR) Nasal B.pertussis DNA PCR Nasal C.pneumoniae (PCR) Kam Human Metapneumo PCR Nasal M.pneumoniae (PCR) Nasal SARS-CoV-2 (PCR) Urine Opiates Screen NEGATIVE (NEGATIVE) Ur Oxycodone Screen NEGATIVE (NEGATIVE) Urine Methadone Screen NEGATIVE (NEGATIVE) Ur Propoxyphene Screen NEGATIVE (NEGATIVE) Ur Barbiturates Screen NEGATIVE (NEGATIVE) Ur Tricyclics Screen NEGATIVE (NEGATIVE) Ur Phencyclidine Scrn NEGATIVE (NEGATIVE) Ur Amphetamine Screen NEGATIVE (NEGATIVE) U Methamphetamines Scrn NEGATIVE (NEGATIVE) U Benzodiazepines Scrn NEGATIVE (NEGATIVE) Urine Cocaine Screen NEGATIVE (NEGATIVE) U Cannabinoids Screen NEGATIVE (NEGATIVE) 08/05/20 08/05/20 08/05/20 Range/Units 15:35 14:40 14:40 WBC (4.8-10.8) x10^3/uL RBC (4.70-6.10) 10^6/uL Hgb (14.0-18.0) g/dL Hct (42.0-52.0) % MCV (80.0-94.0) fL MCH (27.0-31.0) pg MCHC (32.0-36.0) g/dL RDW (12.0-15.0) % Plt Count (130-450) 10^3/uL MPV (7.4-11.4) fL Neut # (Auto) (1.5-6.6) 10^3/uL Lymph # (Auto) (1.5-3.5) 10^3/uL [place] # (Auto) (0.0-1.0) 10^3/uL Eos # (Auto) (0.0-0.7) 10^3/uL Baso # (Auto) (0.0-0.1) 10^3/uL Absolute Nucleated RBC x10^3/uL Nucleated RBC % /100WBC Sodium (135-145) mmol/L Potassium (3.5-5.0) mmol/L Chloride (101-111) mmol/L Carbon Dioxide (21-32) mmol/L Anion Gap (6-13) BUN (6-20) mg/dL Creatinine (0.6-1.2) mg/dL Estimated GFR (MDRD) (>89) Glucose (70-100) mg/dL Lactic Acid (0.5-2.2) mmol/L Calcium (8.5-10.3) mg/dL Magnesium (1.7-2.8) mg/dL Total Bilirubin (0.2-1.0) mg/dL AST (10-42) IU/L ALT (10-60) IU/L Alkaline Phosphatase (42-121) IU/L Troponin I High Sens 3.1 (2.3-19.7) ng/L B-Natriuretic Peptide 12 (5-100) pg/mL Total Protein (6.7-8.2) g/dL Albumin (3.2-5.5) g/dL Globulin (2.1-4.2) g/dL Albumin/Globulin Ratio (1.0-2.2) Lipase (22-51) U/L TSH (0.34-5.60) uIU/mL Urine Color Urine Clarity (CLEAR) Urine pH (5.0-7.5) PH Ur Specific Benton (1.002-1.030) Urine Protein (NEGATIVE) mg/dL Urine Glucose (UA) (NEGATIVE) mg/dL Urine Ketones (NEGATIVE) mg/dL Urine Occult Blood (NEGATIVE) Urine Nitrite (NEGATIVE) Urine Bilirubin (NEGATIVE) Urine Urobilinogen (NORMAL) E.U./dL Ur Leukocyte Esterase (NEGATIVE) Urine RBC (0-5) /HPF Urine WBC (0-3) /HPF Ur Epithelial Cells (<= Few) /HPF Ur Squamous Epith Cells (<= Few) Amorphous Sediment /LPF Urine Bacteria (None Seen) /HPF Ur Microscopic Review Urine Culture Comments Nasal Adenovirus (PCR) NOT DETECTED Nasal B. parapertussis DNA (PCR) NOT DETECTED Nasal Coronavir 229E PCR NOT DETECTED Nasal Coronavir HKU1 PCR NOT DETECTED Nasal Coronavir NL63 PCR NOT DETECTED Nasal Coronavir OC43 PCR NOT DETECTED Nasal Enterovir/Rhinovir PCR NOT DETECTED Nasal Influenza B PCR NOT DETECTED Nasal Influenza A PCR NOT DETECTED Nasal Parainfluen 1 PCR NOT DETECTED Nasal Parainfluen 2 PCR NOT DETECTED Nasal Parainfluen 3 PCR NOT DETECTED Nasal Parainfluen 4 PCR NOT DETECTED Nasal RSV (PCR) NOT DETECTED Nasal B.pertussis DNA PCR NOT DETECTED Nasal C.pneumoniae (PCR) NOT DETECTED Kam Human Metapneumo PCR NOT DETECTED Nasal M.pneumoniae (PCR) NOT DETECTED Nasal SARS-CoV-2 (PCR) NOT DETECTED Urine Opiates Screen (NEGATIVE) Ur Oxycodone Screen (NEGATIVE) Urine Methadone Screen (NEGATIVE) Ur Propoxyphene Screen (NEGATIVE) Ur Barbiturates Screen (NEGATIVE) Ur Tricyclics Screen (NEGATIVE) Ur Phencyclidine Scrn (NEGATIVE) Ur Amphetamine Screen (NEGATIVE) U Methamphetamines Scrn (NEGATIVE) U Benzodiazepines Scrn (NEGATIVE) Urine Cocaine Screen (NEGATIVE) U Cannabinoids Screen (NEGATIVE) 08/05/20 08/05/20 08/05/20 Range/Units 14:40 14:40 14:40 WBC (4.8-10.8) x10^3/uL RBC (4.70-6.10) 10^6/uL Hgb (14.0-18.0) g/dL Hct (42.0-52.0) % MCV (80.0-94.0) fL MCH (27.0-31.0) pg MCHC (32.0-36.0) g/dL RDW (12.0-15.0) % Plt Count (130-450) 10^3/uL MPV (7.4-11.4) fL Neut # (Auto) (1.5-6.6) 10^3/uL Lymph # (Auto) (1.5-3.5) 10^3/uL [place] # (Auto) (0.0-1.0) 10^3/uL Eos # (Auto) (0.0-0.7) 10^3/uL Baso # (Auto) (0.0-0.1) 10^3/uL Absolute Nucleated RBC x10^3/uL Nucleated RBC % /100WBC Sodium 141 (135-145) mmol/L Potassium 3.6 (3.5-5.0) mmol/L Chloride 97 L (101-111) mmol/L Carbon Dioxide 31 (21-32) mmol/L Anion Gap 13.0 (6-13) BUN 23 H (6-20) mg/dL Creatinine 0.8 (0.6-1.2) mg/dL Estimated GFR (MDRD) 119 (>89) Glucose 142 H (70-100) mg/dL Lactic Acid 1.1 (0.5-2.2) mmol/L Calcium 9.5 (8.5-10.3) mg/dL Magnesium 2.5 (1.7-2.8) mg/dL Total Bilirubin 1.2 H (0.2-1.0) mg/dL AST 22 (10-42) IU/L ALT 51 (10-60) IU/L Alkaline Phosphatase 105 (42-121) IU/L Troponin I High Sens (2.3-19.7) ng/L B-Natriuretic Peptide (5-100) pg/mL Total Protein 8.4 H (6.7-8.2) g/dL Albumin 4.8 (3.2-5.5) g/dL Globulin 3.6 (2.1-4.2) g/dL Albumin/Globulin Ratio 1.3 (1.0-2.2) Lipase 24 (22-51) U/L TSH 1.03 (0.34-5.60) uIU/mL Urine Color Urine Clarity (CLEAR) Urine pH (5.0-7.5) PH Ur Specific Benton (1.002-1.030) Urine Protein (NEGATIVE) mg/dL Urine Glucose (UA) (NEGATIVE) mg/dL Urine Ketones (NEGATIVE) mg/dL Urine Occult Blood (NEGATIVE) Urine Nitrite (NEGATIVE) Urine Bilirubin (NEGATIVE) Urine Urobilinogen (NORMAL) E.U./dL Ur Leukocyte Esterase (NEGATIVE) Urine RBC (0-5) /HPF Urine WBC (0-3) /HPF Ur Epithelial Cells (<= Few) /HPF Ur Squamous Epith Cells (<= Few) Amorphous Sediment /LPF Urine Bacteria (None Seen) /HPF Ur Microscopic Review Urine Culture Comments Nasal Adenovirus (PCR) Nasal B. parapertussis DNA (PCR) Nasal Coronavir 229E PCR Nasal Coronavir HKU1 PCR Nasal Coronavir NL63 PCR Nasal Coronavir OC43 PCR Nasal Enterovir/Rhinovir PCR Nasal Influenza B PCR Nasal Influenza A PCR Nasal Parainfluen 1 PCR Nasal Parainfluen 2 PCR Nasal Parainfluen 3 PCR Nasal Parainfluen 4 PCR Nasal RSV (PCR) Nasal B.pertussis DNA PCR Nasal C.pneumoniae (PCR) Kam Human Metapneumo PCR Nasal M.pneumoniae (PCR) Nasal SARS-CoV-2 (PCR) Urine Opiates Screen (NEGATIVE) Ur Oxycodone Screen (NEGATIVE) Urine Methadone Screen (NEGATIVE) Ur Propoxyphene Screen (NEGATIVE) Ur Barbiturates Screen (NEGATIVE) Ur Tricyclics Screen (NEGATIVE) Ur Phencyclidine Scrn (NEGATIVE) Ur Amphetamine Screen (NEGATIVE) U Methamphetamines Scrn (NEGATIVE) U Benzodiazepines Scrn (NEGATIVE) Urine Cocaine Screen (NEGATIVE) U Cannabinoids Screen (NEGATIVE) 08/05/20 Range/Units 14:40 WBC 19.3 H (4.8-10.8) x10^3/uL RBC 6.28 H (4.70-6.10) 10^6/uL Hgb 18.6 H (14.0-18.0) g/dL Hct 57.1 H (42.0-52.0) % MCV 90.9 (80.0-94.0) fL MCH 29.6 (27.0-31.0) pg MCHC 32.6 (32.0-36.0) g/dL RDW 13.7 (12.0-15.0) % Plt Count 360 (130-450) 10^3/uL MPV 9.0 (7.4-11.4) fL Neut # (Auto) 17.0 H (1.5-6.6) 10^3/uL Lymph # (Auto) 0.8 L (1.5-3.5) 10^3/uL [place] # (Auto) 1.4 H (0.0-1.0) 10^3/uL Eos # (Auto) 0.0 (0.0-0.7) 10^3/uL Baso # (Auto) 0.1 (0.0-0.1) 10^3/uL Absolute Nucleated RBC 0.00 x10^3/uL Nucleated RBC % 0.0 /100WBC Sodium (135-145) mmol/L Potassium (3.5-5.0) mmol/L Chloride (101-111) mmol/L Carbon Dioxide (21-32) mmol/L Anion Gap (6-13) BUN (6-20) mg/dL Creatinine (0.6-1.2) mg/dL Estimated GFR (MDRD) (>89) Glucose (70-100) mg/dL Lactic Acid (0.5-2.2) mmol/L Calcium (8.5-10.3) mg/dL Magnesium (1.7-2.8) mg/dL Total Bilirubin (0.2-1.0) mg/dL AST (10-42) IU/L ALT (10-60) IU/L Alkaline Phosphatase (42-121) IU/L Troponin I High Sens (2.3-19.7) ng/L B-Natriuretic Peptide (5-100) pg/mL Total Protein (6.7-8.2) g/dL Albumin (3.2-5.5) g/dL Globulin (2.1-4.2) g/dL Albumin/Globulin Ratio (1.0-2.2) Lipase (22-51) U/L TSH (0.34-5.60) uIU/mL Urine Color Urine Clarity (CLEAR) Urine pH (5.0-7.5) PH Ur Specific Benton (1.002-1.030) Urine Protein (NEGATIVE) mg/dL Urine Glucose (UA) (NEGATIVE) mg/dL Urine Ketones (NEGATIVE) mg/dL Urine Occult Blood (NEGATIVE) Urine Nitrite (NEGATIVE) Urine Bilirubin (NEGATIVE) Urine Urobilinogen (NORMAL) E.U./dL Ur Leukocyte Esterase (NEGATIVE) Urine RBC (0-5) /HPF Urine WBC (0-3) /HPF Ur Epithelial Cells (<= Few) /HPF Ur Squamous Epith Cells (<= Few) Amorphous Sediment /LPF Urine Bacteria (None Seen) /HPF Ur Microscopic Review Urine Culture Comments Nasal Adenovirus (PCR) Nasal B. parapertussis DNA (PCR) Nasal Coronavir 229E PCR Nasal Coronavir HKU1 PCR Nasal Coronavir NL63 PCR Nasal Coronavir OC43 PCR Nasal Enterovir/Rhinovir PCR Nasal Influenza B PCR Nasal Influenza A PCR Nasal Parainfluen 1 PCR Nasal Parainfluen 2 PCR Nasal Parainfluen 3 PCR Nasal Parainfluen 4 PCR Nasal RSV (PCR) Nasal B.pertussis DNA PCR Nasal C.pneumoniae (PCR) Kam Human Metapneumo PCR Nasal M.pneumoniae (PCR) Nasal SARS-CoV-2 (PCR) Urine Opiates Screen (NEGATIVE) Ur Oxycodone Screen (NEGATIVE) Urine Methadone Screen (NEGATIVE) Ur Propoxyphene Screen (NEGATIVE) Ur Barbiturates Screen (NEGATIVE) Ur Tricyclics Screen (NEGATIVE) Ur Phencyclidine Scrn (NEGATIVE) Ur Amphetamine Screen (NEGATIVE) U Methamphetamines Scrn (NEGATIVE) U Benzodiazepines Scrn (NEGATIVE) Urine Cocaine Screen (NEGATIVE) U Cannabinoids Screen (NEGATIVE) Sepsis Event Note (H) - Evaluation Possible source of Sepsis: positive: Genitourinary Assessment/Plan - Problem List (1) Umbilical hernia Impression: tolerating diet, having bm, no pain. I have encouraged him to look into having his hernia repaired when he is back [place] home [place]. I don't believe a binder will work well given his habitus.
[2020-08-06] MEDS ORDERED: cefTRIAXone 1 GM in SODIUM CHLORIDE 0.9% MINIBAG 100 ML IV SCH (09:00)
[2020-08-06] MEDS ORDERED: SODIUM CHLORIDE 0.9% 1,000 ML IV SCH (12:00)
--- NOTE | 2020-08-06 13:44 | Discharge Plan ---
Discharge Plan Problem Reviewed?: Yes Disposition: Home, Self Care Condition: Stable Prescriptions: Ciprofloxacin HCl [Cipro] 500 mg PO BID #10 tablet Saccharomyces Boulardii [Florastor] 250 mg PO DAILY #5 cap Urinary Bag/Catheter [Vapro Plus 14 Fr-8" Catheter] 1 each QID #50 packet Diet: Regular Activity Restrictions: Activity as Tolerated Shower Restrictions: No (fall precaution) Instruction Topics: Obstruction Sm Bowel, CAUTI Catheter Associated, UTI, Umbilical Hernia Repair After Ch, Hernia Surg Umbilical Repair Ch Health Concerns: small bowel obstruction, umbilical hernia, and UTI Plan of Treatment: you tolerate regular diet without nausea, vomiting and abdominal pain, and you have bowel movement as well. Your small bowel obstruction were resolved and umbilical hernia were reduced. You may followup with surgeon as out-pt. You were found to have UTI, and antibiotics is prescribed for you to finish the treatment course. your home size and style of catheter is prescribed for you as well. You may Keep hydration, and hygiene to prevent recurrent UTI infection. Care Goals: stabilization and improvement of your medical conditions. Assessment: discussed the care plan with you, answered your questions, you understood. Additional Instructions or Follow Up instructions: you may followup with your PCP in one to two weeks, followup with surgeon for umbilical hernia as out-pt. Should your symptoms return or worsen, you may present ER or call 911 for help. No Smoking: If you smoke, Please STOP! Call for help.
--- NOTE | 2020-08-06 14:37 | DISCHARGE SUMMARY ---
Discharge Summary Admit Date: 08/05/20 Discharge Date: 08/06/20 Discharging Provider: Star Reaves Condition at Discharge: Stable Discharge Disposition: 01 Home, Self Care Discharge Facility Name: home - DIAGNOSES Discharge Diagnoses with Status of Each Condition: (1) SBO (small bowel obstruction) resolved. Patient had bowel movement, patient tolerated regular diet without nausea, vomiting, abdominal pain. Patient was consulted with GI surgeon (2) Incarcerated umbilical hernia reduction done by GI surgeon at the emergency room. pt has no more abdominal pain, pt tolerated diet without nausea or vomiting. Patient was consulted with GI surgeon. Patient may follow-up with surgeon as out-patient (3) Leukocytosis significant reduced to close to normal arrange 10.9 on today. UA analysis show positive for negative Daniel. pt has hx of UTI. pt has been straight catheter daily base. pt was helped by his mother and his sister to do that. pt has hx of neurogenic bladder. pt was treated with antibiotics in hospital and pt is prescribed antibiotics for d/c to home. pt was consulted with sr. social media & mobile manager. pt is also prescribed Vapro plus matson catheter kit as his home kit to help pt as his suprapubic catheter (4) Abnormal urinalysis UA culture show positive for negative Daniel. pt has hx of UTI. pt had elevated WBC. pt was treated antibiotics in hospital. pt is prescribed antibiotics to finish the treatment course at home. (5) Neurogenic bladder pt has been straight catheter daily base. pt was helped by his mother and his sister to do that. pt has hx of neurogenic bladder. pt was consulted with sr. social media & mobile manager. pt is also prescribed Vapro plus matson catheter kit as his home kit to help pt as his suprapubic catheter (6)sinus tachycardia pt has hx of slightly elevated HR with sinus tachycardia. pt denies chest pain, or palpitation. - HPI History of Present Illness: refer from Dr. Glynn's HPI on 08/05/20 Mr. Sandoval brought himself in by private vehicle for left lower quadrant abdominal pain associated with nausea and vomiting. 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 He self catheterizes on a regular basis. The abdominal pain is not new for him. He has at least a 2-year history of an umbilical hernia that gets bigger and smaller. It has not been incarcerated before. He says he gets this off and on but it does not last very long. This episode is particularly worse than usual. He has been seen by physicians in [place], and they feel that he is not a surgical candidate at this time but he cannot tell me why. He comes to visit his sister. This is a second time coming to [facility]. He came about a month ago. He usually lives in [place] and gets his care with Dr. Roberto Montes who is Family Medicine MD [facility]. [phone]. He denies fevers, chills, sweats. 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 His last bowel movement was yesterday. Anytime he tries to drink or eat something the food comes right back up. He does not think it makes the pain worse. He was seen by Dr. Reyes in the emergency room. Temperature was 36.8, heart rate 54, blood pressure 143/99, respirations 17. Room air 94%. His subsequent pulse rate went up to the 140s and stayed there throughout his ER stay. In looking at his previous days in the ER his heart rate varies between 103 and 117 on a regular basis. On physical examination he had a right upper quadrant scar, a palpable umbilical hernia that was easily reducible and nontender. He had diffuse mild tenderness. White cell count was 19.3, hemoglobin 18.6. Urinalysis had transitional epithelial cells, squamous epithelial cells, many bacteria, moderate leukocyte esterase, red cells, white cells, positive nitrites, positive occult blood. pH was 7.5. This looks like an contaminated urine. CT of the abdomen had an incarcerated umbilical hernia causing small bowel obstruction. Dr. Polk, general surgery on-call, was able to come in and reduce the hernia. However, because of the tachycardia, elevated white cell count, he is requesting the patient be admitted to our service with his consultation. Wants to make sure the patient is observed overnight for recurrence of small bowel obstruction. Also to make sure he is contaminated urine is not infected UTI. - HOSPITAL COURSE Hospital Course: Patient was admitted for nausea, vomiting and abdominal pain. Patient was found a small bowel obstruction due to bowel containing incarcerated umbilical hernia. pt was Consulted with GI surgeon, patient's umbilical hernia was reduced by the GI surgeon. Then pt's symptoms were resolved. pt tolerated regular diet without nausea, vomiting, abdominal pain. pt had bowel movement as well. pt has hx of neurogenic bladder and catheter by pt's family's help. pt was found to have positive UA culture. pt's UA culture show positive for negative Rods and elevated WBC. pt has hx of UTI. pt was treated with IV antibiotics and pt is prescribed antibiotics for d/c to home. - ALLERGIES Allergies/Adverse Reactions: Allergies Allergy/AdvReac Type Severity Reaction Status Date / Time Latex, Natural Rubber Allergy Rash Verified 08/05/20 14:06 - MEDICATIONS Home Medications: Ambulatory Orders Medication Instructions Recorded Confirmed Ciprofloxacin HCl [Cipro] 500 mg PO BID #10 tablet 08/06/20 Saccharomyces Boulardii [Florastor] 250 mg PO DAILY #5 cap 08/06/20 Urinary Bag/Catheter [Vapro Plus 1 each MC QID #50 packet 08/06/20 14 Fr-8" Catheter] - PHYSICAL EXAM AT DISCHARGE General Appearance: positive: No acute distress, Alert. negative: Lethargic Eyes Bilateral: positive: Normal inspection, PERRL, No lid inflammation ENT: positive: ENT inspection nml, No signs of dehydration. negative: Purulent nasal drainage Neck: positive: Nml inspection, Trachea midline. negative: Tracheal deviation Respiratory: positive: Chest non-tender, No respiratory distress. negative: Wheezes, Rales, Rhonchi Cardiovascular: positive: Regular rate & rhythm, No murmur, Tachycardia. negative: Bradycardia, Systolic murmur, Diastolic murmur Peripheral Pulses: positive: 2+ Abdomen: positive: Non-tender, Nml bowel sounds, No distention. negative: Tenderness Back: positive: Nml inspection Skin: positive: Color nml, Warm, Dry, Other (pt has a suprapubic catheter site at his middle of low abdomen. The skin of suprapubic catheter is intact without indication of infection or swelling or erythema.). negative: Cyanosis, Diaphoresis Extremities: positive: Non-tender, Nml appearance, No pedal edema. negative: Calf tenderness Neurologic/Psychiatric: positive: Oriented x3, Sensation nml, Mood/affect nml, Other (pt is bed-bound and use wheelchair). negative: Weakness, Sensory loss, Facial droop, Slurred/abnml speech, Depressed mood/affect - LABS Result Diagrams: 08/06/20 04:15 08/06/20 04:15 - SEPSIS Possible source of Sepsis: Genitourinary - FOLLOW UP Follow Up: you tolerate regular diet without nausea, vomiting and abdominal pain, and you have bowel movement as well. Your small bowel obstruction were resolved and umbilical hernia were reduced. You may followup with surgeon as out-pt. You were found to have UTI, and antibiotics is prescribed for you to finish the treatment course. your home size and style of catheter is prescribed for you as well. You may Keep hydration, and hygiene to prevent recurrent UTI infection. you may followup with your PCP in one to two weeks, followup with surgeon for umbilical hernia as out-pt. Should your symptoms return or worsen, you may present ER or call 911 for help. - TIME SPENT Time Spent in Discharge (Minutes): 30
[2020-08-06 16:12] VITALS: BP 113/58
[2020-08-06] MEDS ORDERED: SACCHAROMYCES BOULARDII 250 MG CAPSULE PO SCH (17:00)
== END 2020-08-06 17:21 | disposition home or self-care (01) ==
LOC: ED 13:58 → MS2 18:19
PROVIDERS: ADMIT Specialist; ATTEND Nurse Practitioner Gerontology
DX: A41.9 Sepsis, unspecified organism (principal); T83.511A Infection and inflammatory reaction due to indwelling urethral catheter, initial encounter; K42.0 Umbilical hernia with obstruction, without gangrene; N39.0 Urinary tract infection, site not specified; N31.9 Neuromuscular dysfunction of bladder, unspecified; Q05.9 Spina bifida, unspecified; G82.20 Paraplegia, unspecified; Z99.3 Dependence on wheelchair; E66.9 Obesity, unspecified; Z68.41 Body mass index [BMI] 40.0-44.9, adult; R33.8 Other retention of urine; Z20.822 Contact with and (suspected) exposure to COVID-19; R32 Unspecified urinary incontinence
CPT/HCPCS: 0202U; 36415; 51701; 71045; 71275; 74177; 80048; 80053; 80306; 81001; 83605; 83690; 83735; 83880; 84443; 84484; 85025; 87040; 87077; 87086; 87181; 93005; 96365; 96375; 96376; 99285; 99291; A9270; G0378; J1170; J7120; Q9967; 81003